=== PATIENT | male | born 1955 | race Caucasian/White ===

== ENCOUNTER 2017-02-16 08:05 | Inpatient (IN) | payer OTHER ==
[~2017-02-16] VITALS: Ht 180.3 cm; Wt 82.6 kg
[2017-02-16] MEDS ORDERED: ONDANSETRON 2MG/ML, 2ML ONE (08:24)
[2017-02-16] MEDS ORDERED: ASPIRIN 81 MG TABLET CHEW ONE (08:24)
[2017-02-16] MEDS ORDERED: PLEASE ENTER HEIGHT AND WEIGHT MC SCH (08:30)
[2017-02-16] MEDS ORDERED: PLEASE ENTER ALLERGIES MC SCH ×2 (08:30)
[2017-02-16] MEDS ORDERED: AMIODARONE 150 MG in DEXTROSE 5% 100 ML IV ONE (08:30)
[2017-02-16] MEDS ORDERED: SODIUM CHLORIDE FLUSH 10ML SYR IVF ONE (08:30)
[2017-02-16] MEDS ORDERED: ASPIRIN 81 MG TABLET CHEW PO ONE (08:30)
[2017-02-16] MEDS ORDERED: ONDANSETRON 2MG/ML, 2ML IVPush ONE (08:30)
[2017-02-16 08:31] LABS: HEMATOCRIT 34.3 % (39.2-51.8); HEMOGLOBIN 11.3 g/dL (13.7-18.0); WHITE BLOOD COUNT 3.8 x10^3/uL (3.4-10)
[2017-02-16 08:43] LABS: ASPARTATE AMINO TRANSFERASE 20 U/L (15-37); BLOOD UREA NITROGEN 25 mg/dL (7-18)
[2017-02-16 08:48] LABS: IS PT STATUS REG ER OR PRE ER? YES
[2017-02-16] MEDS ORDERED: FILTER 0.22 MICRON FOR AMIODARONE IV PRN (09:00)
[2017-02-16] MEDS ORDERED: MORPHINE (10:44)
[2017-02-16] MEDS ORDERED: METH40TA3 PO (10:45)
[2017-02-16] MEDS ORDERED: METH-356 PO (10:45)
[2017-02-16] MEDS ORDERED: AMIO100T4 PO (10:47)
[2017-02-16] MEDS ORDERED: CARV3.1212 PO (10:59)
[2017-02-16] MEDS ORDERED: MORPHINE SULFATE 4 MG/ML, 1ML IVPush PRN (11:00)
[2017-02-16] MEDS ORDERED: MORPHINE SULFATE 4 MG/ML, 1ML ONE (11:44)
[2017-02-16] MEDS ORDERED: POLYETHYLENE GLYCOL 17 GM PACKET PO PRN (12:30)
[2017-02-16] MEDS ORDERED: DOCUSATE 100 MG CAPSULE PO PRN (12:30)
[2017-02-16] MEDS ORDERED: ACETAMINOPHEN 325 MG TABLET PO PRN (12:30)
[2017-02-16] MEDS ORDERED: LABETALOL 5MG/ML, 20ML IVPush PRN (12:30)
[2017-02-16] MEDS ORDERED: BISACODYL 10 MG SUPP PR PRN (12:30)
[2017-02-16] MEDS ORDERED: ONDANSETRON 2MG/ML, 2ML IVPush PRN (12:30)
[2017-02-16] MEDS ORDERED: ONDANSETRON ODT 4 MG PO PRN (12:30)
[2017-02-16] MEDS ORDERED: SODIUM CHLORIDE 0.9%, 250ML IVBOLUS ONE (12:30)
[2017-02-16] MEDS ORDERED: NITROGLYCERIN 0.4 MG/SPRAY SL PRN (12:30)
[2017-02-16] MEDS ORDERED: morphine SULFATE 10 MG/ML, 1ML IVPush PRN (12:30)
[2017-02-16] MEDS: ENOXAPARIN 40 MG/0.4 ML SQ SCH (12:30)
[2017-02-16] MEDS: NICOTINE 7 MG/24 HR PATCH.TD24 TD SCH (12:30)
[2017-02-16] MEDS ORDERED: MAGNESIUM SULFATE PMX 2GM/50ML 50 ML IV ONE (12:30)
[2017-02-16 15:03] LABS: IS PT STATUS REG ER OR PRE ER? YES
[2017-02-16 16:20] VITALS: BP 174/116
[2017-02-16] MEDS ORDERED: DILTIAZEM 5 MG/ML, 5ML IVPush ONE (17:24)
[2017-02-16] MEDS ORDERED: DILTIAZEM 5 MG/ML, 5ML ONE (17:26)
[2017-02-16] MEDS ORDERED: DILTIAZEM 5 MG/ML, 5ML IVPush PRN (18:00)
[2017-02-16 20:27] VITALS: BP 135/88
[2017-02-16 20:49] LABS: IS PT STATUS REG ER OR PRE ER? NO
[2017-02-16] MEDS ORDERED: DIPHENHYDRAMINE 50 MG CAPSULE PO PRN (21:30)
[2017-02-17 00:38] VITALS: BP 146/84
[2017-02-17 01:33] LABS: DAU SCREEN DISCLAIMER
[2017-02-17 06:04] LABS: BLOOD UREA NITROGEN 24 mg/dL (7-18)
[2017-02-17 06:06] LABS: HEMATOCRIT 30.8 % (39.2-51.8); HEMOGLOBIN 10.4 g/dL (13.7-18.0); WHITE BLOOD COUNT 2.4 x10^3/uL (3.4-10)
[2017-02-17 06:15] LABS: ASPARTATE AMINO TRANSFERASE 20 U/L (15-37)
[2017-02-17 07:14] VITALS: BP 148/87
[2017-02-17] MEDS ORDERED: POTASSIUM CHLORIDE 20 MEQ TAB.ER.PRT PO ONE (08:30)
[2017-02-17 12:00] VITALS: BP 144/86
[2017-02-17] MEDS ORDERED: ASPIRIN 81 MG TABLET EC PO SCH (12:00)
[2017-02-17] MEDS: ENOXAPARIN 40 MG/0.4 ML SQ SCH (12:30)
[2017-02-17] MEDS: NICOTINE 7 MG/24 HR PATCH.TD24 TD SCH (12:30)
[2017-02-17] MEDS ORDERED: CARV3.1212 PO (18:19)
[2017-02-18] MEDS ORDERED: ISOS30TA8 PO (14:28)
[2017-02-18] MEDS ORDERED: ASPI-621 PO (14:28)
[2017-02-18] MEDS ORDERED: CARV3.1212 PO (14:28)
== END 2017-02-17 14:13 | disposition left against medical advice (07) | DRG 309 ==
LOC: ED 10:31 → EDIP 10:47 → 5SO 15:17
PROVIDERS: ADMIT Internal Medicine; ATTEND Internal Medicine
DX: I48.0 Paroxysmal atrial fibrillation (principal); E44.1 Mild protein-calorie malnutrition; I24.9 Acute ischemic heart disease, unspecified; I11.0 Hypertensive heart disease with heart failure; I50.9 Heart failure, unspecified; E87.1 Hypo-osmolality and hyponatremia; R07.89 Other chest pain; I25.2 Old myocardial infarction; I48.92 Unspecified atrial flutter; D64.9 Anemia, unspecified; Z68.25 Body mass index [BMI] 25.0-25.9, adult; E87.6 Hypokalemia; I25.5 Ischemic cardiomyopathy; I44.7 Left bundle-branch block, unspecified; I87.8 Other specified disorders of veins; K25.9 Gastric ulcer, unspecified as acute or chronic, without hemorrhage or perforation; Z72.0 Tobacco use; Z85.818 Personal history of malignant neoplasm of other sites of lip, oral cavity, and pharynx; Z88.6 Allergy status to analgesic agent; Z88.8 Allergy status to other drugs, medicaments and biological substances; Z87.11 Personal history of peptic ulcer disease; Z91.14 Patient's other noncompliance with medication regimen
CPT/HCPCS: 36415; 71010; 78452; 80053; 80061; 80307; 83690; 83735; 84100; 84439; 84443; 84484; 85025; 93005; 93017; 96374; 96375; J2405; A9502; C9898; J3475; J7050

== ENCOUNTER 2017-02-17 17:35 | Inpatient (IN) | payer MEDICAID ==
[~2017-02-17] VITALS: Ht 180.3 cm; Wt 79.2 kg
[~2017-02-17 17:35] MED LIST: AMIO100T4 PO; CARV3.1212 PO; METH-356 PO; METH40TA3 PO; MORPHINE
[2017-02-17] MEDS ORDERED: CARV3.1212 PO (18:19)
[2017-02-17] MEDS ORDERED: ASPIRIN 81 MG TABLET CHEW ONE (18:36)
[2017-02-17] MEDS ORDERED: SODIUM CHLORIDE FLUSH 10ML SYR IVF ONE (19:00)
[2017-02-17] MEDS ORDERED: SODIUM CHLORIDE FLUSH 10ML SYR IVF PRN (19:00)
[2017-02-17] MEDS ORDERED: ASPIRIN 81 MG TABLET CHEW PO ONE (19:00)
[2017-02-17 19:11] LABS: HEMATOCRIT 29.2 % (39.2-51.8); HEMOGLOBIN 9.7 g/dL (13.7-18.0); WHITE BLOOD COUNT 3.5 x10^3/uL (3.4-10)
[2017-02-17 19:17] LABS: BLOOD UREA NITROGEN 28 mg/dL (7-18)
[2017-02-17] MEDS ORDERED: ACETAMINOPHEN 325 MG TABLET PO PRN (19:30)
[2017-02-17] MEDS ORDERED: NITROGLYCERIN 0.4 MG BOTTLE (25 TABS) SL PRN (19:30)
[2017-02-17] MEDS ORDERED: ONDANSETRON 2MG/ML, 2ML IVPush PRN (19:30)
[2017-02-17] MEDS ORDERED: NICOTINE 14MG/24 HR PATCH.TD24 TD SCH (19:30)
[2017-02-17] MEDS: HEPARIN 5,000 UNITS/ML, 1ML SQ SCH (19:30)
[2017-02-17] MEDS ORDERED: POLYETHYLENE GLYCOL 17 GM PACKET PO PRN (19:30)
[2017-02-17 20:05] LABS: IS PT STATUS REG ER OR PRE ER? NO
[2017-02-17 22:09] VITALS: BP 150/84
[2017-02-17] MEDS: METHADONE 40 MG TABLET.SOL PO SCH (22:11)
[2017-02-17] MEDS: SODIUM CHLORIDE FLUSH 10ML SYR IVF SCH (22:13)
[2017-02-18 01:34] VITALS: BP 117/74
[2017-02-18] MEDS: HEPARIN 5,000 UNITS/ML, 1ML SQ SCH ×2 (03:30→10:49)
[2017-02-18 05:17] LABS: IS PT STATUS REG ER OR PRE ER? NO
[2017-02-18] MEDS ORDERED: ASPIRIN 325 MG TABLET EC PO SCH (06:00)
[2017-02-18 06:45] VITALS: BP 132/84
[2017-02-18] MEDS ORDERED: ISOSORBIDE MONONITRATE ER 30 MG TABLET PO SCH (09:00)
[2017-02-18] MEDS ORDERED: AMIODARONE 200 MG TABLET PO SCH (09:00)
[2017-02-18] MEDS ORDERED: CARVEDILOL 3.125 MG TABLET PO SCH (09:00)
[2017-02-18] MEDS ORDERED: SENNA/DOCUSATE TABLET PO SCH (09:00)
[2017-02-18] MEDS: METHADONE 40 MG TABLET.SOL PO SCH (09:16)
[2017-02-18] MEDS: SODIUM CHLORIDE FLUSH 10ML SYR IVF SCH (09:17)
[2017-02-18] MEDS ORDERED: ASPIRIN 81 MG TABLET EC PO SCH (09:25)
[2017-02-18 12:59] VITALS: BP 134/83
[2017-02-18] MEDS ORDERED: ISOS30TA8 PO (14:28)
[2017-02-18] MEDS ORDERED: CARV3.1212 PO (14:28)
[2017-02-18] MEDS ORDERED: ASPI-621 PO (14:28)
== END 2017-02-18 16:07 | disposition home or self-care (01) | DRG 313 ==
LOC: ED 18:51 → EDIP 19:21 → 5SO 19:56
PROVIDERS: ADMIT Internal Medicine; ATTEND Internal Medicine
DX: R07.2 Precordial pain (principal); D68.69 Other thrombophilia; E87.1 Hypo-osmolality and hyponatremia; I20.0 Unstable angina; I50.22 Chronic systolic (congestive) heart failure; C09.9 Malignant neoplasm of tonsil, unspecified; D64.9 Anemia, unspecified; F17.210 Nicotine dependence, cigarettes, uncomplicated; G89.29 Other chronic pain; I11.0 Hypertensive heart disease with heart failure; I25.2 Old myocardial infarction; I44.7 Left bundle-branch block, unspecified; I48.0 Paroxysmal atrial fibrillation; I87.8 Other specified disorders of veins; Z85.818 Personal history of malignant neoplasm of other sites of lip, oral cavity, and pharynx; Z90.49 Acquired absence of other specified parts of digestive tract
CPT/HCPCS: 36415; 71010; 80048; 82040; 83880; 84484; 85025; 85610; 85730; 93005; 99285